=== PATIENT | female | born 2000 | race Caucasian/White ===

== ENCOUNTER 2020-05-23 11:36 | Day surgery (SDC) | payer OTHER, SELFPAY ==
[2020-05-23] VITALS (15 sets, daily range): BP systolic 92–155; BP diastolic 46–68; PULSE 77–102; RESP 12–25; TEMP 36.6–37.9; O2SAT 99–100
--- NOTE | ~2020-05-23 | US_ITS ---
EXAMINATION: US pelvic complete w TV DATE: 05/23/2020 13:21 INDICATION: Recent presenting with fever and vaginal bleeding TECHNIQUE: Multiple transabdominal and endovaginal sonographic images of the pelvis were obtained. COMPARISON: None. FINDINGS: The uterus measures 9.7 x 5.1 x 6.3 cm. The endometrial complex measures 15 mm mm in thickness with mildly heterogeneous echogenicity. The right ovary measures 4.0 x 2.3 x 2.0 cm. The left ovary measur es 2.7 x 1.5 x 1.5 cm. There is normal vascular flow in the ovaries. There is no free fluid in the pe lvis. IMPRESSION: 1. Mildly thickened and mildly heterogeneous endometrial complex measuring 15 mm in thickness which c ould be related to end of the secretory phase, clot or retained products of conception. Reviewed, dictated and finalized at location A. IMPRESSION: 1. Mildly thickened and mildly heterogeneous endometrial complex measuring 15 m m in thickness which could be related to end of the secretory phase, clot or re tained products of conception.
--- NOTE | ~2020-05-23 | XR_ITS ---
EXAMINATION: XR chest 1V portable DATE: 05/23/2020 12:45 INDICATION: Fever TECHNIQUE: frontal view of the chest was obtained. COMPARISON: None FINDINGS: The lungs are clear with no focal airspace opacities, pulmonary edema, pleural effusion or pneumothor ax. The cardiomediastinal silhouette is normal. Visualized bones and soft tissues are unremarkable. IMPRESSION: 1. No acute cardiopulmonary disease. Reviewed, dictated and finalized at location A.
--- NOTE | 2020-05-23 11:47 | ED.FEVER ---
HPI - Fever General Chief Complaint: Fever Stated Complaint: fatigue, h/a, diarrhea Time Seen by Provider: 05/23/20 11:47 Source: patient Mode of arrival: ambulatory Limitations: no limitations History of Present Illness HPI Narrative: Patient is a G1, P0 0010, who presents for evaluation of fever and vaginal bleeding. Patient states she had a positive test last week, was seen at a local [facility] where she was prescribed oral abortive medication, had her first dose on Monday, and took her second dose on Monday 24 hours after. Patient is unsure of the name of the medication she took. Patient states that she had some typical cramping, vaginal bleeding Monday and Monday, stated this had mostly resolved on Monday and patient was actually feeling much improved. This morning however, patient awakened with fever, myalgias and diarrhea. Patient is also reporting very heavy vaginal bleeding with large clots. Patient is reporting pelvic pain. She is denying any dysuria or hematuria. Patient is monogamous with her boyfriend. She denies history of chlamydia or gonorrhea. She denies history of previous pregnancies. She states her blood type is O+. Related Data Allergies Allergy/AdvReac Type Severity Reaction Status Date / Time azithromycin Allergy Severe Anaphylactic Verified 05/23/20 11:51 Shock ciprofloxacin Allergy Unknown Anaphylactic Verified 05/23/20 11:51 Shock clarithromycin AdvReac Unknown Anaphylactic Verified 05/23/20 11:51 Shock Review of Systems Review of Systems: Narrative: CONSTITUTIONAL: Reports fever and chills ENT: Denies rhinorrhea, congestion, sore throat, or otalgia. CARDIOVASCULAR: Denies chest pain, palpitations, or edema. RESPIRATORY: Denies cough or dyspnea. GASTROINTESTINAL: Reports pelvic pain, nausea and diarrhea GENITOURINARY: Denies dysuria or hematuria. Reports vaginal bleeding. SKIN: Denies rash or itching. MUSCULOSKELETAL: Denies back pain, joint pain, reports myalgias NEUROLOGIC: Denies headache, numbness, or weakness. [facility] Past Medical History Medical History Nephrolithiasis UTI (urinary tract infection) Social History Social History Smoking status: Never smoker Alcohol intake: current Alcohol use details: Social Substance use: never Gender identity (if verbalized by the patient): Female Exam Narrative: Exam Narrative: GENERAL: Awake, alert, conversant HEAD: Normocephalic, atraumatic. EYES: PERRLA and EOMI. ENT: Nares clear, no rhinorrhea or epistaxis. Mucous membranes moist. NECK: Supple. CHEST: No respiratory distress, breathing even and non labored HEART: Tachycardic rate, sinus rhythm ABDOMEN:Non distended, non tender : Labia majora and minora normal without lesions. Vagina with blood, approximately 10 amounts of blood present. Mild cervical motion tenderness. Os dilated to 2 cm. No adnexal tenderness or fullness bilaterally. No purulent discharge present. EXTREMITIES: Normal range of motion. No edema. SKIN: Warm, dry, no rash. NEURO:No focal deficits. Alert and oriented x3 Course Vital Signs Vital signs: Vital Signs Temperature 37.9 C H 05/23/20 11:41 Pulse Rate 102 H 05/23/20 11:41 Respiratory Rate 14 05/23/20 11:41 Blood Pressure 155/66 H 05/23/20 11:41 Pulse Oximetry 99 05/23/20 11:41 Temperature 37.4 C 05/23/20 14:19 Pulse Rate 82 05/23/20 15:46 Respiratory Rate 23 H 05/23/20 15:46 Blood Pressure 107/64 05/23/20 15:46 Pulse Oximetry 99 05/23/20 14:19 MDM - Fever MDM Narrative Medical decision making narrative: Patient presented for evaluation of fever, vaginal bleeding in the setting of recent . Patient presents febrile, tachycardic. Blood pressure is stable. Patient is quite tender on pelvic exam, vaginal exam does reveal a slightly dilated office, active blee
[2020-05-23] MEDS: ONDANSETRON INJ 4 MG/2 ML VIAL IV PUSH (12:05)
[2020-05-23 12:10] LABS: Basophils Percent Auto 0.6 % (0.2-1.2); Hematocrit 36.6 % (37.0-47.0); Hemoglobin 12.2 g/dL (12.0-15.0); Immature Granulocyte Absolute 0.01 K/mm3 (0.00-0.031); Immature Granulocyte Percent A 0.2 % (0-0.5); Immature Platelet Fraction Pct 3.5 % (0.9-11.2); Lymphocytes Absolute Auto 0.51 K/mm3 (0.9-3.2); Lymphocytes Percent Auto 10.4 % (18.3-44.2); Mean Corpuscular HGB Conc 33.3 g/dl (32-36); Mean Corpuscular Hemoglobin 28.8 pg (26-34); Mean Corpuscular Volume 86.3 fl (80-100); Mean Platelet Volume 10.8 fl (7.4-10.4); Monocytes Absolute Auto 0.4 K/mm3 (0.1-0.6); Monocytes Percent Auto 7.7 % (2.6-8.5); Neutrophils Percent Auto 81.1 % (45.5-73.1); Platelet Count Result 152 k/mm3 (150-375); Red Blood Count 4.24 M/mm3 (4.2-5.4); Red Cell Distribution Width 12.4 % (11.5-14.5); White Blood Count 4.9 K/mm3 (4.5-10.0)
[2020-05-23 12:14] LABS: Add Urine Microscopic? YES; Appearance Urine Clear (Clear); Bilirubin Urine Negative (Negative); Blood Urine 2+ (Negative); Color Urine Straw (Yellow); Glucose Urine UA Negative (Negative); Ketones Urine Negative (Negative); Leukocyte Esterase Ur Negative LEU/UL (Negative); Mucus Urine Rare /lpf; Nitrate Urine Negative (Negative); Protein Urine Negative (Negative); RBC Urine 21-50 /hpf (0-2); Specific Grav Ur 1.016 (1.001-1.035); Squamous Epithelial Cell Urine Occasional /hpf (Few); Urobilinogen Urine Negative mg/dL (<2.0); WBC Urine 0-3 /hpf
[2020-05-23 12:17] LABS: Lactic Acid Reflex 1.1 mmol/L (0.7-2.1)
[2020-05-23 12:21] LABS: Alanine Aminotransferase 15 U/L (4-35); Albumin Level 3.9 g/dL (3.5-5.1); Alkaline Phosphatase 60 U/L (38-126); Anion Gap 5 mmol/L (8-16); Aspartate Amino Transferase 23 U/L (14-36); Bilirubin,Total 0.4 mg/dL (0.2-1.3); Blood Urea Nitrogen 7 mg/dL (7-17); CRP 2.1 mg/dL (<1.0); Calcium 8.4 mg/dL (8.4-10.2); Carbon Dioxide 26 mmol/L (22-30); Chloride 102 mmol/L (98-107); Estimated CRCL calculation 90 ml/min; Estimated Glomerular Filt Rate > 60; Glucose 106 mg/dL (65-105); Potassium 3.9 mmol/L (3.4-5.0); Sodium 133 mmol/L (137-145)
[2020-05-23 12:30] LABS: Prothrombin Time 13.1 Seconds (11.1-14.7)
[2020-05-23] MEDS: MORPHINE SULFATE 2 MG/ML INJ IV PUSH (14:51)
[2020-05-23] MEDS: SODIUM CHLORIDE 0.9% IV 1,000 ML 150 ML IV CONT (14:52)
[2020-05-23] MEDS: metroNIDAZOLE 500 MG/ISO 100ML 500 MG/100 ML BAG 100 MG IVPB (15:05)
--- NOTE | 2020-05-23 15:30 | PC.NURSE ---
Pt states she has hives on her back and legs. MD notified. VORB 25mg benadryl
[2020-05-23] MEDS: diphenhydrAMINE HCl INJ 50 MG/ML VIAL 25 MG IV PUSH (15:45)
--- NOTE | 2020-05-23 15:55 | WPDANESEPPF ---
Anes - Initial Pre Proc Eval Procedure: Operation Date: 05/23/20 16:00 Proposed Procedures p D&C Suction and Sharp - Caleb Rico MD Date/Time: 05/23/20 15:55 Surgeon: Caleb Rico MD Pre Op Diagnosis: fatigue, h/a, diarrhea Patient Data Age: 20 Gender: F Height: 1.6 m Weight: 58.9 kg Last Vital Signs Temp 37.4 C 05/23/20 14:19 Pulse 82 05/23/20 14:19 Resp 23 H 05/23/20 14:19 BP 102/60 05/23/20 14:19 Pulse Ox 99 05/23/20 14:19 Allergies Allergy/AdvReac Type Severity Reaction Status Date / Time azithromycin Allergy Severe Anaphylactic Verified 05/23/20 11:51 Shock ciprofloxacin Allergy Unknown Anaphylactic Verified 05/23/20 11:51 Shock clarithromycin AdvReac Unknown Anaphylactic Verified 05/23/20 11:51 Shock Home Medications Medication Instructions Recorded Confirmed Type acetaminophen-codeine 1 tablet 05/23/20 History promethazine 05/23/20 History Laboratory Tests 05/23/20 05/23/20 05/23/20 11:58 11:58 11:58 WBC 4.9 K/mm3 K/mm3 (4.5-10.0) RBC 4.24 M/mm3 M/mm3 (4.2-5.4) Hgb 12.2 g/dL g/dL (12.0-15.0) Hct 36.6 % L % (37.0-47.0) MCV 86.3 fl fl (80-100) MCH 28.8 pg pg (26-34) MCHC 33.3 g/dl g/dl (32-36) RDW 12.4 % % (11.5-14.5) Plt Count 152 k/mm3 k/mm3 (150-375) MPV 10.8 fl H fl (7.4-10.4) Immature Gran % (Auto) 0.2 % % (0-0.5) Neut % (Auto) 81.1 % H % (45.5-73.1) Lymph % (Auto) 10.4 % L % (18.3-44.2) [place] % (Auto) 7.7 % % (2.6-8.5) Eos % (Auto) 0.0 % % (0-4.4) Baso % (Auto) 0.6 % % (0.2-1.2) Lymph # (Auto) 0.51 K/mm3 L K/mm3 (0.9-3.2) [place] # (Auto) 0.4 K/mm3 K/mm3 (0.1-0.6) Eos # (Auto) 0.0 K/mm3 K/mm3 (0-0.3) Baso # (Auto) 0.0 K/mm3 K/mm3 (0.0-0.1) Abs Immat Gran (auto) 0.01 K/mm3 K/mm3 (0.00-0.031) Absolute Neuts (auto) 4.0 K/mm3 K/mm3 (1.3-6.7) Absolute Nucleated RBC 0.0 K/mm3 K/mm3 (0.0-0.012) Nucleated RBC % 0.0 % % (0.0-0.2) % Immature Plt Fraction 3.5 % % (0.9-11.2) PT 13.1 Seconds Seconds (11.1-14.7) INR 1.0 APTT 29.0 SECONDS SECONDS (22.3-36.8) Sodium 133 mmol/L L mmol/L (137-145) Potassium 3.9 mmol/L mmol/L (3.4-5.0) Chloride 102 mmol/L mmol/L (98-107) Carbon Dioxide 26 mmol/L mmol/L (22-30) Anion Gap 5 mmol/L L mmol/L (8-16) BUN 7 mg/dL mg/dL (7-17) Creatinine 0.70 mg/dL mg/dL (0.7-1.0) Estim Creat Clear Calc 90 ml/min ml/min Estimated GFR > 60 (59 - ) Glucose 106 mg/dL H mg/dL (65-105) Lactic Acid Calcium 8.4 mg/dL mg/dL (8.4-10.2) Total Bilirubin 0.4 mg/dL mg/dL (0.2-1.3) AST 23 U/L U/L (14-36) ALT 15 U/L U/L (4-35) Alkaline Phosphatase 60 U/L U/L (38-126) C-Reactive Protein 2.1 mg/dL H mg/dL (<1.0) Total Protein 7.0 g/dL g/dL (6.3-8.2) Albumin 3.9 g/dL g/dL (3.5-5.1) Beta HCG, Quant 2789.80 mIU/ML mIU/ML Urine Color Urine Appearance Urine pH Ur Specific [place] Urine Protein Urine Glucose (UA) Urine Ketones Ur Blood (Man) Urine Nitrate Urine Bilirubin Urine Urobilinogen Leukocyte Esterase Rfl Urine RBC Urine WBC Ur Squamous Epith Cells Urine Mucus SARS-CoV-2 RNA (RT-PCR) Blood Type Antibody Screen Screen Baby's Blood Type Baby's PAUL Doses of RhIg Required 05/23/20 05/23/20 05/23/20
--- NOTE | 2020-05-23 16:15 | PM.IMHP ---
H&P: HPI History of Present Illness Date/Time: 05/23/20 16:15 Chief complaint: fatigue, h/a, diarrhea Narrative: Indira Rendon is a 20 year old female 1 female who presents with vaginal bleeding cramping discomfort. Earlier in the week to 2 pills for medical induction of termination of which did not cause a lot of bleeding and cramping until this morning when she did have a significant amount of the above and therefore presents emergency room. Ultrasound reveals retained products of conception and she does continue with pain and discomfort therefore will proceed with suction curettage. Also note has low-grade fever which without any other symptoms will at this point be attributed to of potential for endometritis therefore on discharge with placed on antibiotics as well as having gotten antibiotics already in the emergency room. Review of Systems Review of Systems: All systems reviewed & are unremarkable except as noted in HPI and below PMFSH Past Medical History Medical History Nephrolithiasis UTI (urinary tract infection) Social History Social History Smoking status: Never smoker Alcohol intake: current Alcohol use details: Social Substance use: never Gender identity (if verbalized by the patient): Female Meds Home Medications and Allergies Home Medications Medication Instructions Recorded Confirmed Type acetaminophen-codeine 1 tablet 05/23/20 History promethazine 05/23/20 History Allergies Allergy/AdvReac Type Severity Reaction Status Date / Time azithromycin Allergy Severe Anaphylactic Verified 05/23/20 11:51 Shock ciprofloxacin Allergy Unknown Anaphylactic Verified 05/23/20 11:51 Shock clarithromycin AdvReac Unknown Anaphylactic Verified 05/23/20 11:51 Shock Vital Signs Vital Signs - 24 hr 05/23/20 11:41 05/23/20 12:15 05/23/20 12:17 Temperature 37.9 C H Pulse Rate 102 H 98 95 Respiratory Rate 14 16 21 H Blood Pressure 155/66 H 118/68 115/67 Pulse Oximetry 99 05/23/20 12:46 05/23/20 14:19 05/23/20 14:23 Temperature 37.4 C Pulse Rate 92 82 85 Respiratory Rate 18 23 H 25 H Blood Pressure 108/63 102/60 102/60 Pulse Oximetry 99 05/23/20 14:30 05/23/20 15:00 05/23/20 15:46 Temperature Pulse Rate 90 86 82 Respiratory Rate 18 18 23 H Blood Pressure 111/61 100/66 107/64 Pulse Oximetry Exam Const: General: no acute distress Resp: Auscultation: clear to auscultation bilaterally Cardio: Rate: regular rate Rhythm: regular rhythm GI: GI Palp: Yes Soft to palpation : Other: Vaginal bleeding noted cervix closed. H&P: Results Labs Labs: Short CBC 05/23/20 Range/Units 11:58 WBC 4.9 (4.5-10.0) K/mm3 Hgb 12.2 (12.0-15.0) g/dL Hct 36.6 L (37.0-47.0) % Plt Count 152 (150-375) k/mm3 BMP 05/23/20 11:58 Sodium 133 L Potassium 3.9 Chloride 102 Carbon Dioxide 26 BUN 7 Creatinine 0.70 Glucose 106 H Calcium 8.4 Liver Function 05/23/20 Range/Units 11:58 Total Bilirubin 0.4 (0.2-1.3) mg/dL AST 23 (14-36) U/L ALT 15 (4-35) U/L Alkaline Phosphatase 60 (38-126) U/L Albumin 3.9 (3.5-5.1) g/dL Urine 05/23/20 Range/Units 11:58 Urine Color Straw (Yellow) Urine Appearance Clear (Clear) Urine pH 8.0 (5.0-9.0) Ur Specific [place] 1.016 (1.001-1.035) Urine Protein Negative (Negative) mg/dL Urine Glucose (UA) Negative (Negative) mg/dL Assessment and Plan Assessment and plan (1) Incomplete miscarriage: Code(s): O03.4 - Incomplete spontaneous without complication Status: Acute Additional Plan proceed with suction curettage.
--- NOTE | 2020-05-23 16:35 | PM.OP ---
Procedure Note - Brief Procedure Note - Brief Date of procedure: 05/23/20 Pre-op diagnosis: fatigue, h/a, diarrhea Incomplete miscarriage Post-op diagnosis: same Procedure performed: suction curettage Description of procedure: patient prepped draped in usual manner for this procedure uterus was sounded to 8cm. 8Mm curette was placed and under suction minimal tissue was removed. Sharp curette throughout with no significant bleeding. Second probe was placed 1 more time no significant bleeding. The procedure at this point was considered terminated there was no significant blee Surgeon: Caleb Rico MD Estimated blood loss (mL): 20 Drains: No Packing: No Pathology: yes Complications: No immediate complications Condition: stable Disposition: PACU Findings: minimal amount of retained products of conception.
[2020-05-23] MEDS: LACTATED RINGERS 1,000 ML 30 ML IV CONT (16:46)
[2020-05-23 23:55] LABS: SARS-CoV-2 RNA PCR Negative
--- NOTE | 2020-05-28 10:40 | PM.OP ---
Procedure Note - Brief Procedure Note - Brief Date of procedure: 05/28/20 Pre-op diagnosis: fatigue, h/a, diarrhea Anesthesia: MAC Surgeon: Caleb Rico MD
== END 2020-05-23 18:15 | disposition home or self-care (01) ==
LOC: ANHED 14:33 → ANHSURGERY 15:13
PROVIDERS: Emergency Provider Emergency Medicine; Visit Provider Obstetrics & Gynecology
PROC: (CPT 59812; principal; 2020-05-23 16:00)
DX: O07.4 Failed attempted termination of pregnancy without complication (principal); Z20.828 Contact with and (suspected) exposure to other viral communicable diseases
CPT/HCPCS: 59812; 36415; 71045; 76830; 76856; 80053; 81001; 83605; 84702; 85025; 85055; 85461; 85610; 85730; 86140; 87040; 87635; 88305; 96361; 96374; 96375; 99285; A9270; C9803; J0131; J1200; J2210; J2250; J2270; J2405; J2543; J2590; J2704; J3010; J7030; J7120; U0003

== ENCOUNTER 2021-02-10 02:29 | Emergency (ER) | payer OTHER, SELFPAY ==
--- NOTE | ~2021-02-10 | CT_ITS ---
EXAMINATION: CT abdomen pelvis wo con DATE: 02/10/2021 03:14 INDICATION: Left flank pain. TECHNIQUE: Computed tomography (CT) of the abdomen and pelvis was performed without intravenous contr ast. Automated exposure control and iterative reconstruction technique were employed. The dose-length product was 281.76 mGy-cm. COMPARISON: CT abdomen and pelvis 12/21/2018 FINDINGS: The visualized portions of the lung bases demonstrate minimal atelectasis. There are 6 mm a nd 3 mm nodules in right lower lobe, likely benign. No pleural effusion. The heart size is normal. No pericardial effusion. The liver, gallbladder, spleen, pancreas, adrenal glands, and kidneys are norm al. There is no urolithiasis. There are no dilated loops of bowel. The appendix is normal. There are no pathologically enlarged lymph nodes. There is trace ascites. 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 IMPRESSION: 1. No urolithiasis. Reviewed, dictated and finalized at location A. IMPRESSION: 1. No urolithiasis.
[2021-02-10 02:32] VITALS: BP 109/67; PULSE 97; RESP 16; TEMP 36.9; O2SAT 99
--- NOTE | 2021-02-10 02:39 | ED.FEMALEGU ---
HPI - Female Genitourinary General Chief complaint: Back Pain/Injury Stated complaint: left flank pain Time Seen by Provider: 02/10/21 02:35 Source: patient Mode of arrival: ambulatory Limitations: no limitations History of Present Illness HPI Narrative: Patient is a 18-year-old female complaining of left flank pain, 6 out of 10, sharp accompanied by dysuria and nausea that started 1 week ago. Patient denies any chest pain, shortness of breath, abdominal pain, vomiting, diarrhea, fever or chills. Related Data Allergies Allergy/AdvReac Type Severity Reaction Status Date / Time azithromycin Allergy Severe Anaphylactic Verified 05/23/20 11:51 Shock ciprofloxacin Allergy Unknown Anaphylactic Verified 05/23/20 11:51 Shock clarithromycin AdvReac Unknown Anaphylactic Verified 05/23/20 11:51 Shock Review of Systems Review of Systems: All systems reviewed & are unremarkable except as noted in HPI and below Constitutional: Constitutional: Denies body ache(s), Denies excessive sweating, Denies fatigue, Denies fever(s), Denies headache(s), Denies lethargy, Denies malaise, Denies weakness and Denies weight loss Eyes: Eyes: Denies blurry vision, Denies change in vision and Denies loss of vision ENT: Denies dizziness, Denies ear discharge, Denies headache(s), Denies lip swelling, Denies epistaxis, Denies nasal congestion, Denies neck pain, Denies throat swelling and Denies tongue swelling Cardiovascular: Cardiovascular: Denies chest pain, Denies chest pain at rest, Denies chest pain with activity, Denies diaphoresis, Denies rapid heart rate, Denies edema, Denies irregular heart rhythm, Denies lightheadedness, Denies palpitations, Denies dyspnea and Denies dyspnea on exertion Respiratory: Respiratory: Denies chest congestion, Denies cough, Denies hemoptysis, Denies dyspnea and Denies dyspnea on exertion Gastrointestinal: Gastrointestinal: Denies abdominal pain, Denies melena, Denies hematochezia, Denies diarrhea, Denies vomiting and Denies hematemesis Musculoskeletal: Musculoskeletal: Denies abnormal gait, Denies deformity, Denies joint swelling, Denies limited range of motion, Denies neck pain and Denies numbness Neurologic: Denies Abnormal speech present, Denies abnormal gait, Denies confusion, Denies dizziness, Denies headache(s), Denies focal weakness, Denies loss of vision, Denies numbness, Denies Other visual disturbances, Denies Sensory deficit (Neuro) and Denies weakness Psychiatric: Psychiatric: Denies confusion, Denies depression, Denies auditory hallucinations, Denies homicidal ideation and Denies suicidal ideation Endocrine: Endocrine: Denies cold intolerance, Denies excessive sweating, Denies fatigue, Denies heat intolerance and Denies palpitations Hematologic/Lymphatic: Hematologic/Lymphatic: Denies easy bleeding and Denies easy bruising Allergic/Immunologic: Allergic/Immunologic: Denies lip swelling, Denies throat swelling and Denies tongue swelling PMFSH Past Medical History Medical History (Updated 02/10/21 @ 04:38 by Carlos Yuan MD) Nephrolithiasis UTI (urinary tract infection) Social History Social History Smoking status: Never smoker Alcohol intake: current Substance use: never Gender identity (if verbalized by the patient): Female Exam Const: General: cooperative, healthy appearing, comfortable, no acute distress, well developed, alert and awake; No confusion Orientation/consciousness: oriented to person, oriented to place, oriented to time, patient oriented x3 and No confusion Limitations: no limitations HENMT: Head: normal to inspection, normocephalic and atraumatic Ears: hearing grossly normal bilaterally, TM normal on the right and TM normal on the left General nose exam: Normal external nose present, Normal nares present and No nasal discharge present Face and sinus: normal facial exam Mouth: Yes Normal oral and palatal
--- NOTE | 2021-02-10 02:43 | PC.NURSE ---
Pt ambulated in fraga to restroom to provide urine specimen. Pt now back in room resting on cart in its lowest position with call button and personal items within reach. Boyfriend present at bedside.
--- NOTE | 2021-02-10 02:44 | PC.NURSE ---
Pt presents to ED with complaint of left flank pain that onset approx 1.5 weeks ago. Pt admits to hx of kidney stones, kidney infection and ureter stent placement. Pt states she had to have stone surgically removed. Pt admits to nausea and denies emesis, diarrhea, fever, chills, chest pain, sob and tx pain manager presentation. Pt rates pain 7/10 and aching at this time. Pt resting on cart in its lowest position with call button and personal items within reach. Pt alert, stable and in no obvious distress. Friend at bedside. Call button and personal items within reach; pt advised to press call button for assistance.
--- NOTE | 2021-02-10 02:54 | PC.NURSE ---
EDMD presented to bedside. Urine specimen collect and blood work collected and sent to lab.
[2021-02-10 03:04] VITALS: BP 92/66; PULSE 93; RESP 13; TEMP 37.4; O2SAT 98
[2021-02-10 03:04] LABS: Basophils Absolute Auto 0.1 K/mm3 (0.0-0.1); Basophils Percent Auto 0.4 % (0.2-1.2); Eosinophils Absolute Auto 0.3 K/mm3 (0-0.3); Eosinophils Percent Auto 1.9 % (0-4.4); Hematocrit 36.9 % (37.0-47.0); Hemoglobin 12.6 g/dL (12.0-15.0); Immature Granulocyte Absolute 0.05 K/mm3 (0.00-0.031); Immature Granulocyte Percent A 0.3 % (0-0.5); Lymphocytes Absolute Auto 1.82 K/mm3 (0.9-3.2); Lymphocytes Percent Auto 12.6 % (18.3-44.2); Mean Corpuscular HGB Conc 34.1 g/dl (32-36); Mean Corpuscular Hemoglobin 29.4 pg (26-34); Mean Corpuscular Volume 86.2 fl (80-100); Mean Platelet Volume 10.6 fl (7.4-10.4); Monocytes Percent Auto 6.8 % (2.6-8.5); Neutrophils Absolute Auto 11.2 K/mm3 (1.3-6.7); Platelet Count Result 207 k/mm3 (150-375); Red Blood Count 4.28 M/mm3 (4.2-5.4); Red Cell Distribution Width 12.3 % (11.5-14.5); White Blood Count 14.4 K/mm3 (4.5-10.0)
[2021-02-10 03:07] LABS: Add Urine Microscopic? NO; Appearance Urine Clear (Clear); Bilirubin Urine Negative (Negative); Blood Urine Negative (Negative); Color Urine Straw (Yellow); Glucose Urine UA Negative (Negative); Ketones Urine Negative (Negative); Leukocyte Esterase Ur Negative LEU/UL (Negative); Nitrate Urine Negative (Negative); Protein Urine Negative (Negative); Specific Grav Ur 1.011 (1.001-1.035); Urobilinogen Urine Negative mg/dL (<2.0)
[2021-02-10] MEDS: KETOROLAC 30 MG/ML VIAL (*BKC) IV PUSH (03:21)
[2021-02-10] MEDS: SODIUM CHLORIDE 0.9% IV 1,000 ML 999 ML IV CONT (03:22)
--- NOTE | 2021-02-10 03:27 | PC.NURSE ---
Pt to and from Ct and is now back in room resting on cart in its lowest position with call button and personal items within reach. Friend remains at bedside. Call button and personal items within reach. Vitals are stable and pt in no obvious distress. Advised to press call button for assistance.
[2021-02-10 03:31] LABS: Anion Gap 7 mmol/L (8-16); Blood Urea Nitrogen 15 mg/dL (7-17); Calcium 9.3 mg/dL (8.4-10.2); Carbon Dioxide 24 mmol/L (22-30); Chloride 106 mmol/L (98-107); Estimated Glomerular Filt Rate > 60; Glucose 94 mg/dL (65-105); Potassium 3.8 mmol/L (3.4-5.0); Sodium 137 mmol/L (137-145)
--- NOTE | 2021-02-10 03:47 | PC.NURSE ---
Pt complains of persistent pain. EDMD notified and states he will place orders.
[2021-02-10] MEDS: HYDROcodone/acetaminophen (*CRX) 5-325 MG TABLET 1 TAB PO (03:59)
[2021-02-10 04:46] VITALS: BP 95/62; PULSE 79; RESP 18; TEMP 37; O2SAT 99
--- NOTE | 2021-02-10 04:46 | PC.NURSE ---
EDMD presented to bedside to update pt on poc. All questions and concerns addressed.
[2021-02-10 04:48] VITALS: BP 95/62; PULSE 79; RESP 18; TEMP 37; O2SAT 99
== END 2021-02-10 04:49 | disposition home or self-care (01) ==
PROVIDERS: Emergency Provider Emergency Medicine
DX: R10.9 Unspecified abdominal pain (principal); Z87.440 Personal history of urinary (tract) infections
CPT/HCPCS: 36415; 74176; 80048; 81003; 81025; 85025; 96361; 96374; 99284; A9270; J1885; J7030

== ENCOUNTER 2021-04-26 17:54 | Emergency (ER) | payer OTHER, SELFPAY ==
--- NOTE | ~2021-04-26 | XR_ITS ---
EXAMINATION: XR knee RT min 4V DATE: 04/26/2021 18:14 INDICATION: Right knee pain. TECHNIQUE: 4 views of right knee on 5 radiographs were obtained. COMPARISON: None. FINDINGS: Bone alignment is normal. No fracture. Joint spaces are well maintained. There is no knee j oint effusion. IMPRESSION: 1. No fracture. Reviewed, dictated and finalized at location A. IMPRESSION: 1. No fracture.
[2021-04-26 17:57] VITALS: BP 116/72; PULSE 82; RESP 14; TEMP 36.7; O2SAT 99
--- NOTE | 2021-04-26 18:49 | ED.LOWEXIN ---
HPI - Extremity Injury (Lower) General Chief Complaint: Extremity Injury, Lower Stated Complaint: r knee pain Time Seen by Provider: 04/26/21 18:20 Source: patient Mode of arrival: ambulatory Limitations: no limitations History of Present Illness HPI Narrative: Patient is a 20-year-old female who presents complaining of right knee pain. She reports twisting the knee approximately 2 to 3 days ago. She reports rest, ice and use of ibuprofen with moderate relief. Patient reports increased pain with ambulation. She denies all other injuries she denies of complaints. 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 Related Data Allergies Allergy/AdvReac Type Severity Reaction Status Date / Time azithromycin Allergy Severe Anaphylactic Verified 04/26/21 18:31 Shock ciprofloxacin Allergy Unknown Anaphylactic Verified 04/26/21 18:31 Shock clarithromycin AdvReac Unknown Anaphylactic Verified 04/26/21 18:31 Shock Review of Systems Review of Systems: CONSTITUTIONAL: Denies fever, chills, or sweats. EYES: Denies visual changes, redness, or discharge. ENT: Denies rhinorrhea, congestion, sore throat, or otalgia. CARDIOVASCULAR: Denies chest pain, palpitations, or edema. RESPIRATORY: Denies cough or dyspnea. GASTROINTESTINAL: Denies abdominal pain, nausea, vomiting, or diarrhea. GENITOURINARY: Denies dysuria or hematuria. SKIN: Denies rash or itching. MUSCULOSKELETAL: Reports right knee pain NEUROLOGIC: Denies headache, numbness, dizziness, or weakness. PSYCHIATRIC: Denies anxiety or depression. [facility] Past Medical History Medical History (Updated 04/26/21 @ 18:56 by GUERLINE Ovalle) Nephrolithiasis UTI (urinary tract infection) Social History Social History Smoking status: Never smoker Alcohol intake: current Alcohol use details: Social Substance use: never Gender identity (if verbalized by the patient): Female Comments At the time of signature, I have reviewed and agree with nursing past medical, surgical, social, and family history unless otherwise noted. Please see nursing chart for further information. There is no relevant family history pertinent to the presenting complaint. Exam Narrative: GENERAL: Well-appearing, well-nourished, and in no acute distress. HEAD: Normocephalic, atraumatic. EYES: EOMI. No redness or drainage. Conjunctiva are normal. ENT: Mucous membranes pink and moist. CHEST: No respiratory distress. HEART: Regular rate and rhythm. EXTREMITIES: Normal range of motion. Mild edema to right knee, tenderness with palpation to lateral right knee, no deformity noted, distal sensation intact, good capillary refill SKIN: Warm, dry, no rash. NEURO: No focal deficits. Alert and oriented x3. Gait steady. PSYCH: Normal affect. No signs of depression or anxiety. Course Vital Signs Vital signs: Vital Signs Temperature 36.7 C 04/26/21 17:57 Pulse Rate 882 H 04/26/21 17:57 Respiratory Rate 14 04/26/21 17:57 Blood Pressure 116/72 04/26/21 17:57 Pulse Oximetry 99 04/26/21 17:57 Temperature 36.7 C 04/26/21 17:57 Pulse Rate 882 H 04/26/21 17:57 Respiratory Rate 14 04/26/21 17:57 Blood Pressure 116/72 04/26/21 17:57 Pulse Oximetry 99 04/26/21 17:57 Reviewed MDM - Extremity Injury (Lower) MDM Narrative Medical decision making narrative: Patient's x-ray shows no acute osseous abnormality. Mild edema noted right knee, tenderness patient to the right lateral knee. Discussed with patient that most likely a soft tissue injury and follow-up with orthopedics is necessary for further evaluation. Patient agrees with plan of care. Patient is stable for discharge home with outpatient follow-up as discussed. Differential Diagnosis Differential diagnosis: Likely other (Sprain, strain, fracture, contusion) Medical Records Attestation: I reviewed the patient's medical records.
== END 2021-04-26 19:10 | disposition home or self-care (01) ==
LOC: ANHED 19:03
PROVIDERS: Emergency Provider Nurse Practitioner
DX: M25.561 Pain in right knee (principal); Z87.440 Personal history of urinary (tract) infections; Z87.442 Personal history of urinary calculi
CPT/HCPCS: 73564; 99283

== ENCOUNTER 2021-07-14 16:46 | Emergency (ER) | payer OTHER, SELFPAY ==
--- NOTE | 2021-07-14 17:15 | PC.NURSE ---
pt left - states she will go somewhere else. Left the ER with steady gait in no distress
== END 2021-07-14 17:15 | disposition left against medical advice (07) ==
DX: Z53.21 Procedure and treatment not carried out due to patient leaving prior to being seen by health care provider (principal)
CPT/HCPCS: 99199

== ENCOUNTER 2021-09-12 07:26 | Observation (INO) | payer OTHER, SELFPAY ==
[2021-09-12] VITALS (7 sets, daily range): BP systolic 95–124; BP diastolic 44–86; PULSE 84–98; RESP 15–20; TEMP 36.6–36.8; O2SAT 98–100; BMI 23.8
--- NOTE | ~2021-09-12 | CT_ITS ---
EXAMINATION: CT abdomen pelvis w con DATE: 09/12/2021 08:32 INDICATION: Right flank pain. Nausea and vomiting. TECHNIQUE: Computed tomography (CT) of the abdomen and pelvis was performed with 100 mL Omnipaque 350 intravenous contrast. Automated exposure control and iterative reconstruction technique were employe d. The dose-length product was 295.42 mGy-cm. COMPARISON: CT abdomen and pelvis 02/10/2021 FINDINGS: The visualized portions of the lung bases are clear without pneumonia or pleural effusion. The heart size is normal. No pericardial effusion. The liver, gallbladder, spleen, pancreas, adrenal glands, and kidneys are normal. There are no dilated loops of bowel. The appendix is normal. There ar e no pathologically enlarged lymph nodes. There is physiologic fluid in the pelvis. The bones are unr emarkable. IMPRESSION: 1. No etiology for the patient's symptoms. Reviewed, dictated and finalized at location A. TABLE MECHANIC
--- NOTE | ~2021-09-12 | CT_ITS ---
EXAMINATION: CT brain wo con DATE: 09/12/2021 12:34 INDICATION: Frontal headache. TECHNIQUE: Computed tomography (CT) of the head was performed without intravenous contrast. The mA wa s adjusted according to patient size. Iterative reconstruction technique was employed. The dose-lengt h product was 529.67 mGy-cm. COMPARISON: Head CT 12/23/2018 FINDINGS: There is no intracranial hemorrhage, acute infarction, or abnormal intracranial mass lesion . The ventricles are normal in size. There is mucosal thickening in the paranasal sinuses. The mastoi d air cells are normal. The orbits are normal. IMPRESSION: 1. Normal brain. Reviewed, dictated and finalized at location A. IGERATION SUPERVISOR IMPRESSION: 1. Normal brain.
[2021-09-12 08:09] LABS: Basophils Percent Auto 0.4 % (0.2-1.2); Eosinophils Absolute Auto 0.1 K/mm3 (0-0.3); Eosinophils Percent Auto 2.8 % (0-4.4); Hematocrit 36.8 % (37.0-47.0); Hemoglobin 12.4 g/dL (12.0-15.0); Immature Granulocyte Absolute 0.01 K/mm3 (0.00-0.031); Immature Granulocyte Percent A 0.2 % (0-0.5); Immature Platelet Fraction Pct 5.4 % (0.9-11.2); Lymphocytes Absolute Auto 0.25 K/mm3 (0.9-3.2); Lymphocytes Percent Auto 5.4 % (18.3-44.2); Mean Corpuscular HGB Conc 33.7 g/dl (32-36); Mean Corpuscular Hemoglobin 29.7 pg (26-34); Mean Corpuscular Volume 88.2 fl (80-100); Mean Platelet Volume 10.8 fl (7.4-10.4); Monocytes Absolute Auto 0.4 K/mm3 (0.1-0.6); Monocytes Percent Auto 8.8 % (2.6-8.5); Neutrophils Absolute Auto 3.8 K/mm3 (1.3-6.7); Neutrophils Percent Auto 82.4 % (45.5-73.1); Platelet Count Result 138 k/mm3 (150-375); Red Blood Count 4.17 M/mm3 (4.2-5.4); Red Cell Distribution Width 12.3 % (11.5-14.5); White Blood Count 4.6 K/mm3 (4.5-10.0)
[2021-09-12] MEDS: KETOROLAC 30 MG/ML VIAL (*BKC) IV PUSH (08:10)
[2021-09-12] MEDS: ONDANSETRON INJ 4 MG/2 ML VIAL IV PUSH ×2 (08:10→12:22)
[2021-09-12 08:11] LABS: Alanine Aminotransferase 14 U/L (4-35); Albumin Level 4.1 g/dL (3.5-5.1); Alkaline Phosphatase 65 U/L (38-126); Anion Gap 8 mmol/L (8-16); Aspartate Amino Transferase 23 U/L (14-36); Bilirubin,Total 0.6 mg/dL (0.2-1.3); Blood Urea Nitrogen 16 mg/dL (7-17); Calcium 8.8 mg/dL (8.4-10.2); Carbon Dioxide 23 mmol/L (22-30); Chloride 103 mmol/L (98-107); Estimated CRCL calculation 71 ml/min; Estimated Glomerular Filt Rate > 60; Glucose 99 mg/dL (65-110); Sodium 134 mmol/L (137-145)
[2021-09-12] MEDS: SODIUM CHLORIDE 0.9% IV 1,000 ML 999 ML IV CONT (08:11)
[2021-09-12 08:14] LABS: Add Urine Microscopic? YES; Appearance Urine Cloudy (Clear); Bacteria Urine Trace /hpf; Bilirubin Urine Negative (Negative); Blood Urine 2+ (Negative); Color Urine Yellow (Yellow); Glucose Urine UA Negative (Negative); Ketones Urine Trace mg/dL (Negative); Leukocyte Esterase Ur 2+ LEU/UL (Negative); Mucus Urine Few /lpf; Nitrate Urine Negative (Negative); Protein Urine Negative (Negative); RBC Urine 51-75 /hpf (0-2); Specific Grav Ur 1.027 (1.001-1.035); Squamous Epithelial Cell Urine Many /hpf (Few); Urobilinogen Urine Negative mg/dL (<2.0); WBC Urine >75 /hpf
[2021-09-12 09:10] LABS: Lipase 19 U/L (23-300)
[2021-09-12] MEDS: HYDROmorphone HCL INJ (*CRX) 1 MG/ML SYR 0.5 MG IV PUSH ×3 (09:12→20:23)
--- NOTE | 2021-09-12 10:19 | ED.GENADULT ---
HPI - General Adult General Chief complaint: Urogenital-Female Stated complaint: headache, uti symptoms Time Seen by Provider: 09/12/21 07:34 Source: patient and family Mode of arrival: ambulatory Limitations: no limitations History of Present Illness HPI narrative: Patient presents with right flank pain associated with nausea, chills, burning urination started last night. Constant, no aggravating or relieving factors. History of kidney stones Related Data Home Medications Medication Instructions Recorded Confirmed No Home Medications 09/12/21 09/12/21 Allergies Allergy/AdvReac Type Severity Reaction Status Date / Time azithromycin Allergy Severe Anaphylactic Verified 09/12/21 07:57 Shock ciprofloxacin Allergy Unknown Anaphylactic Verified 09/12/21 07:57 Shock clarithromycin Allergy Unknown Anaphylactic Verified 09/12/21 07:57 Shock Review of Systems Review of Systems: CONSTITUTIONAL: Denies fever, chills, or sweats. EYES: Denies visual changes, redness, or discharge. ENT: Denies rhinorrhea, congestion, sore throat, or otalgia. CARDIOVASCULAR: Denies chest pain, palpitations, or edema. RESPIRATORY: Denies cough or dyspnea. GASTROINTESTINAL: Denies abdominal pain, nausea, vomiting, or diarrhea. GENITOURINARY: Denies dysuria or hematuria. SKIN: Denies rash or itching. MUSCULOSKELETAL: Denies back pain, joint pain, or myalgia. NEUROLOGIC: Denies headache, numbness, or weakness. PSYCHIATRIC: Denies anxiety or depression. PMFSH Past Medical History Medical History Iliotibial band syndrome affecting right lower leg Nephrolithiasis UTI (urinary tract infection) Family History Family History Other Arthritis Asthma Breast cancer Depression Diabetes mellitus Neuropathy Throat cancer Social History Social History Smoking status: Never smoker Alcohol intake: current Alcohol use details: Social Substance use: current Substance use type: marijuana Gender identity (if verbalized by the patient): Female Exam Narrative: General appearance: Well-developed, well-nourished, in pain Skin: Normal color Head: Normocephalic, nontraumatic Eyes: Clear conjunctiva ENT: Oropharynx normal, ears normal, nose normal Neck: Supple, nontender Chest and respiratory: Airway patent, no respiratory distress, no accessory muscle use Heart: Regular rate/rhythm Abdomen: Right flank tenderness Vascular: Normal peripheral pulses, normal capillary refill. Musculoskeletal: Normal range of motion, nontender back Neurologic: Alert and oriented ?3, Course Course Emergency Course: Stable Vital Signs Vital signs: Vital Signs Temperature 36.8 C 09/12/21 07:35 Pulse Rate 97 09/12/21 07:35 Respiratory Rate 20 09/12/21 07:35 Blood Pressure 114/60 09/12/21 07:35 Pulse Oximetry 99 09/12/21 07:35 Temperature 36.8 C 09/12/21 07:35 Pulse Rate 84 09/12/21 12:10 Respiratory Rate 15 09/12/21 12:10 Blood Pressure 124/86 09/12/21 12:10 Pulse Oximetry 98 09/12/21 12:10 Medical Decision Making MDM Narrative Medical decision making narrative: Impressions Abdomen/Pelvis CT 09/12/21 08:34 IMPRESSION: 1. No etiology for the patient's symptoms. Differential Diagnosis Differential Diagnosis: Kidney stone, , urinary tract infection Vital Signs Vital Signs: Vital Signs Temperature 36.8 C 09/12/21 07:35 Pulse Rate 97 09/12/21 07:35 Respiratory Rate 20 09/12/21 07:35 Blood Pressure 114/60 09/12/21 07:35 Pulse Oxime
[2021-09-12] MEDS: MORPHINE SULFATE (*CRX) 4 MG/ML INJ IV PUSH (12:22)
[2021-09-12] MEDS: guaiFENesin 600 MG/DEXTROMETHORPHAN 30 MG SR TAB 12 HR 1 TAB PO (14:43)
--- NOTE | 2021-09-12 15:14 | PM.IMHP ---
H&P: HPI History of Present Illness Date/Time: 09/12/21 15:14 this is a 21-year-old female patient who came to the emergency room with complaints of right flank pain and she also had a headache nausea vomiting fever chills burning with urination that started last night. Patient stated that she has had a history of kidney stones with extraction in the past. Patient stated that she has some nasal congestion as well. She stated she has been vaccinated for COVID-19. Head CT was read as a normal brain. There is mucosal thickening in the paranasal sinuses. I did start her on Flonase and Mucinex. Abdominal CT was read as no etiology for patient's symptoms. Patient was given IV fluids, Toradol, Zofran, Dilaudid, Tylenol morphine, and started on Rocephin for urinary tract infection. The patient stated that her headache is pretty much subsided now. She is no longer nauseated. Sodium 134. Urinalysis leukocyte esterase 2+, rbc's 51-75, wbc's greater than 75, and many squamous cell. Could possibly be a contaminant however cultures were sent off. The patient is being admitted to observation status on the date of service of 09/12/2021. Chief Complaint: Headache and urinary symptoms Review of Systems Review of Systems: All systems reviewed & are unremarkable except as noted in HPI and below Constitutional: Constitutional: Reports as per HPI and Reports no additional constitutional complaints Eyes: Eyes: Reports as per HPI and Reports no additional eye complaints ENT: Reports system reviewed and no additional complaints, except as documented and Reports Normal hearing present Cardiovascular: Cardiovascular: Reports no additional cardiovascular complaints Respiratory: Respiratory: Reports no additional respiratory complaints and Reports no additional respiratory complaints Gastrointestinal: Gastrointestinal: Reports as per HPI and Reports no additional gastrointestinal complaints Musculoskeletal: Musculoskeletal: Reports no additional musculoskeletal complaints Integumentary/Breasts: Skin/Breast: Reports system reviewed and no additional complaints, except as docu and Reports as per HPI Neurologic: Reports system reviewed and no additional complaints, except as documented, Reports as per HPI and Reports Normal hearing present Psychiatric: Psychiatric: Reports no additional psychiatric complaints and Reports as per HPI Endocrine: Endocrine: Reports no additional endocrine complaints Hematologic/Lymphatic: Hematologic/Lymphatic: Reports no additional hematologic/lymphatic complaints Allergic/Immunologic: Allergic/Immunologic: Reports no additional allergic/immunologic complaints [facility] Past Medical History Medical History (Updated 09/12/21 @ 15:29 by Rubina Graham NP) Iliotibial band syndrome affecting right lower leg Nephrolithiasis UTI (urinary tract infection) Surgical History Surgical History (Updated 09/12/21 @ 15:24 by Rubina Graham NP) H/O dilation and curettage History of extraction of renal calculus Family History Family History (Updated 09/12/21 @ 15:25 by Rubina Graham NP) Mother COPD (chronic obstructive pulmonary disease) Other Arthritis Asthma Breast cancer Depression Diabetes mellitus Neuropathy Throat cancer Social History Social History (Updated 09/12/21 @ 15:26 by Rubina Graham NP) Social History: The patient is not and does not have any children. She works at [email or web address] and [email or web address]. 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 Lifelong nonsmoker. She occasionally drinks a glass a wine. No marijuana or illicit drugs. She does not have a durable power managing attorney. Code status full code Smoking status: Never smoker Alcohol intake: current Alcohol use details: Social Substance use: current Substance use type: marijuana Gender identity (if verbalized by the patient): Female Meds Home Medications and Allergies Home Medications Medicatio
[2021-09-12] MEDS: SODIUM CHLORIDE 0.9% IV 1,000 ML 125 ML IV CONT ×2 (16:25→23:07)
--- NOTE | 2021-09-12 21:22 | ADMGEN ---
This patient, Indira Rendon, was admitted to [facility] Surg Room 316-02. Patient/family oriented to hospital policies and general routines including ID bracelet, bed and alarms, visiting hours, pain management, procedures, bathroom and other care routines, personal items, smoking policy, room service/diet, and visiting hours. Information on how to activate the Rapid Response Team has been discussed. Patient/Family are encouraged to report perceived risks to care and to ask questions if they do not understand what they are told or what they should do.
[2021-09-13] VITALS: BP 122/66; PULSE 89; RESP 18; TEMP 36.7; O2SAT 99
[2021-09-13] MEDS: SODIUM CHLORIDE 0.9% IV 1,000 ML 125 ML IV CONT ×2 (05:34→15:17)
[2021-09-13 06:00] VITALS: BP 89/47; PULSE 76; RESP 16; TEMP 36.3; O2SAT 99
[2021-09-13] MEDS: FLUTICASONE PROPIONATE 0.05% NA SPR 16 GM BTL (*BKC) 2 SPRAY NASAL (08:13)
[2021-09-13] MEDS: guaiFENesin 600 MG/DEXTROMETHORPHAN 30 MG SR TAB 12 HR 1 TAB PO ×2 (08:14→20:39)
[2021-09-13] MEDS: HYDROmorphone HCL INJ (*CRX) 1 MG/ML SYR 0.5 MG IV PUSH ×3 (12:25→20:43)
[2021-09-13 14:00] VITALS: BP 91/52; PULSE 75; RESP 16; TEMP 36.6; O2SAT 100
--- NOTE | 2021-09-13 16:25 | PM.IMPN ---
Progress Note: A&P Assessment and Plan (1) Urinary tract infection: Qualifiers: Hematuria presence: with hematuria Urinary tract infection type: site unspecified Qualified Code(s): N39.0 - Urinary tract infection, site not specified; R31.9 - Hematuria, unspecified Code(s): N39.0 - Urinary tract infection, site not specified Status: Acute Assessment and Plan: Patient was started on Rocephin. Blood and urine cultures are pending. Continue with IV fluids. Awaiting UC report (2) Headache: Code(s): R51.9 - Headache, unspecified Status: Acute Assessment and Plan: Continue with nausea and pain medication and IV fluids. Subjective Date/time seen: 09/13/21 16:25 Interval history: 21-year-old female patient who came to the emergency room with complaints of right flank pain and she also had a headache nausea vomiting fever chills burning with urination that started last night. Patient stated that she has had a history of kidney stones with extraction in the past. Pt here with UTI awaiting UC report. Review of Systems Review of Systems: All systems reviewed & are unremarkable except as noted in HPI and below Exam Const: General: cooperative and healthy appearing; No in distress Nutritional Appearance: thin Orientation/consciousness: oriented to person HENMT: Head: normal to inspection Resp: Effort & Inspection: no respiratory distress Auscultation: no rhonchi and no wheezes Cardio: Rate: regular rate Rhythm: regular rhythm GI: Inspection: normal to inspection GI Palp: No abdominal tenderness, No Guarding due to palpation present (GI) and No Hepatomegaly present Auscultation: normal bowel sounds Neuro: General: oriented to person Objective Data Vital Signs Vital Signs: Vital Signs - 24 hr 09/12/21 16:29 09/12/21 18:10 09/12/21 20:30 Temperature 36.7 C Pulse Rate 92 84 89 Respiratory Rate 18 16 18 Blood Pressure 118/62 114/64 124/60 Pulse Oximetry 98 99 100 09/12/21 22:00 09/13/21 00:00 09/13/21 06:00 Temperature 36.6 C 36.7 C 36.3 C L Pulse Rate 86 89 76 Respiratory Rate 18 18 16 Blood Pressure 95/44 L 122/66 89/47 L Pulse Oximetry 100 99 99 09/13/21 14:00 Temperature 36.6 C Pulse Rate 75 Respiratory Rate 16 Blood Pressure 91/52 L Pulse Oximetry 100 Intake/Output Intake/Output: Intake & Output 09/10/21 09/11/21 09/12/21 09/13/21 23:59 23:59 23:59 23:59 Intake Total 2049 2449 Balance 2049 2449 Meds/Results Medications: Active Medications Generic Name Dose Route Start Last Admin Trade Name Freq PRN Reason Stop Dose Admin Fluticasone Propionate 2 spray 09/13/21 09:00 09/13/21 08:13 Fluticasone Propionate 0.05% Na Spr 16 Gm Btl (*Bkc) NASAL 2 spray QAM SAM Administration Guaifenesin/Dextromethorphan 1 tab 09/12/21 21:00 09/13/21 08:14 Guaifenesin 600 Mg/Dextromethorphan 30 Mg Sr Tab 12 Hr PO 1 tab Q12HR SAM Administration Hydromorphone HCl 0.5 mg 09/12/21 13:29 09/13/21 12:25 Hydromorphone Hcl Inj (*Crx) 1 Mg/Ml Syr IV PUSH 0.5 mg Q4H PRN Administration Pain Rated 7-10 Sodium Chloride 1,000 mls @ 125 mls/hr 09/12/21 13:30 09/13/21 15:17 Normal Saline Iv IV CONT 125 mls/hr .Q8H SAM Administration Ceftriaxone Sodium/Dextrose 1 gm in 50 mls @ 100 mls/hr 09/13/21 10:00 09/13/21 09:35 Rocephin 1 Gm/D5w 50 Ml IVPB Infused Q24H SAM Infusion Ondansetron HCl 4 mg 09/12/21 15:30 Ondansetron Inj 4 Mg/2 Ml Vial IV PUSH Q4H PRN nausea Radiology Results: ITS Impressions Abdomen/Pelvis CT 09/12/21 08:34 IMPRESSION: 1. No etiology for the patient's symptoms. Head CT 09/12/21 12:35 IMPRESSION: 1. Normal brain. Quality VTE Prophylaxis VTE prophylaxis: pharmacologic ordered
[2021-09-13] MEDS: ONDANSETRON INJ 4 MG/2 ML VIAL IV PUSH (18:12)
--- NOTE | 2021-09-13 18:50 | PC.NURSE ---
report given to pacu. pt off floor at this time. all belongings taken.
[2021-09-14] MEDS: ONDANSETRON INJ 4 MG/2 ML VIAL IV PUSH ×2 (00:42→08:09)
[2021-09-14] MEDS: HYDROmorphone HCL INJ (*CRX) 1 MG/ML SYR 0.5 MG IV PUSH ×3 (00:45→09:23)
[2021-09-14] MEDS: SODIUM CHLORIDE 0.9% IV 1,000 ML 75 ML IV CONT (02:55)
[2021-09-14 05:30] VITALS: BP 93/53; PULSE 66; RESP 20; TEMP 37.1; O2SAT 98
[2021-09-14 08:00] VITALS: BP 106/63; PULSE 58; PULSE 66; RESP 14; RESP 20; TEMP 37.2; O2SAT 100; O2SAT 98
[2021-09-14] MEDS: guaiFENesin 600 MG/DEXTROMETHORPHAN 30 MG SR TAB 12 HR 1 TAB PO (08:54)
[2021-09-14] MEDS: FLUTICASONE PROPIONATE 0.05% NA SPR 16 GM BTL (*BKC) 2 SPRAY NASAL (08:54)
--- NOTE | 2021-09-14 10:54 | P.DS_ITS ---
DS: Admitting Diagnosis Discharge Date 09/14/2021 Admitting Diagnosis Headache and urinary symptoms DS: Discharge Diagnosis Discharge Diagnosis (1) Urinary tract infection: Qualifiers: Hematuria presence: with hematuria Urinary tract infection type: site unspecified Qualified Code(s): N39.0 - Urinary tract infection, site not specified; R31.9 - Hematuria, unspecified Code(s): N39.0 - Urinary tract infection, site not specified Status: Acute Assessment and Plan: Patient was started on Rocephin. Blood and urine cultures are pending. Continu e with IV fluids. UC grew ECOLi sensitive to augmentin (2) Headache: Code(s): R51.9 - Headache, unspecified Status: Acute Assessment and Plan: Continue with nausea and pain medication in hospital. DS: Summary Hospital Course Hospital Course: 21-year-old female patient who came to the emergency room with complaints of right flank pain and she also had a headache nausea vomiting fever chills burning with urination that started last night. Patient stated that she has had a history of kidney stones with extraction in the past. Pt here with UTI, UC shows EColi sensitive to augmentin. Time Spent with Patient Time attestation: Total time spent providing and/or coordinating discharge services:40 minutes on day of discharge Exam Const: General: cooperative and healthy appearing; No in distress Nutritional Appearance: thin Orientation/consciousness: oriented to person HENMT: Head: normal to inspection Resp: Effort & Inspection: no respiratory distress Auscultation: no rhonchi and no wheezes Cardio: Rate: regular rate Rhythm: regular rhythm GI: Inspection: normal to inspection Auscultation: normal bowel sounds Neuro: General: oriented to person DS: Data Data Completed and Pending Labs on day of discharge: Preliminary micro results at discharge 09/12/21 17:37 Blood Culture - Preliminary Blood 09/12/21 17:41 Blood Culture - Preliminary Blood Discharge Plan Discharge Attending physician on discharge: Radha Alonzo Consulting providers: Bro Shafer Discharging Clinician: Radha Alonzo Anticipated Discharge Date/Time: 09/14/21 10:52 Patient Disposition: Home, Self-Care Activity: as tolerated Diet: regular Patient Instructions: Antibiotic Form Stand Alone Forms: General Discharge Information Follow-up/Referrals: Bro Shafer MD [Physician] - (with rpt UA in 2-3 weeks time ) Discharge Medications: New phenazopyridine [Pyridium] 200 mg tablet 200 mg PO TID PRN (Reason: pain) Qty: 6 RF: 0 fluticasone propionate 50 mcg/actuation Mertzon,Suspension 2 spray intranasal QAM Qty: 16 RF: 0 amoxicillin-pot clavulanate [Augmentin] 500-125 mg tablet 1 tablet PO Q12H Qty: 20 RF: 0 Date of admission: 09/12/21 13:29 Primary Care Provider: PHYSICIAN,CLINICAL RESEARCH SCIENTIST Admitting Provider: Ct Reynoso Attending physician on admission: Ct Reynoso Condition: Improved
== END 2021-09-14 12:17 | disposition home or self-care (01) ==
LOC: ANHED 13:40 → ANH3MEDSUR 09-13 15:33 → ANHSUROVER 09-14 10:54 → ANH3MEDSUR 09-15 14:38 → ANHSUROVER 09-15 14:38
PROVIDERS: Admitting Provider Internal Medicine; Emergency Provider Emergency Medicine; Visit Provider Family Medicine
DX: N39.0 Urinary tract infection, site not specified (principal); R31.9 Hematuria, unspecified; B96.20 Unspecified Escherichia coli [E. coli] as the cause of diseases classified elsewhere; R51.9 Headache, unspecified; Z87.442 Personal history of urinary calculi
CPT/HCPCS: 36415; 70450; 74177; 80053; 81001; 81025; 83690; 85025; 85055; 87040; 87077; 87086; 87088; 87186; 96361; 96365; 96366; 96367; 96375; 96376; 99285; A9270; G0378; G0379; J0131; J0696; J1170; J1885; J2270; J2405; J7030; Q9967

== ENCOUNTER 2021-12-21 20:31 | Emergency (ER) | payer OTHER, SELFPAY ==
--- NOTE | ~2021-12-21 | XR_ITS ---
XR ribs RT 2V DATE: 12/21/2021 21:25 INDICATION: Fall while cheerleading. Right rib pain. TECHNIQUE: 3 views COMPARISON: None FINDINGS: No right rib fracture is detected. No right pulmonary infiltrate, pneumothorax or pleural e ffusion. Mild thoracic scoliosis. IMPRESSION: No right rib fracture is detected Reviewed, dictated and finalized at location A.
--- NOTE | ~2021-12-21 | CT_ITS ---
EXAMINATION: CT brain wo con DATE: 12/22/2021 00:52 INDICATION: Head injury post fall TECHNIQUE: Computed tomography (CT) of the head was performed without intravenous contrast. Sagittal and coronal reconstructions were performed. The mA was adjusted according to patient size. Iterative reconstruction technique was employed. The dose-length product was 605.33 mGy-cm. COMPARISON: head CT dated 09/12/2021 FINDINGS: No fracture. No acute intracranial hemorrhage, acute infarction or abnormal extra axial fluid collect ion. Ventricles are normal and symmetric. No mass/mass effect. The orbits, paranasal sinuses and mast oid air cells are normal. IMPRESSION: 1. Normal head CT. No fracture or acute intracranial process. Reviewed, dictated and finalized at location A.
[2021-12-21 20:44] VITALS: BP 136/87; PULSE 83; RESP 16; TEMP 36.8; O2SAT 100
[2021-12-21 23:28] VITALS: BP 108/69; PULSE 78; RESP 18; O2SAT 100
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
[2021-12-22] MEDS: KETOROLAC (*BKC) 60 MG/2 ML VIAL IM (00:28)
[2021-12-22] MEDS: HYDROcodone/acetaminophen (*CRX) 5-325 MG TABLET 1 TAB PO (01:52)
[2021-12-22] MEDS: ONDANSETRON HCL ODT 4 MG TABLET PO (02:02)
[2021-12-22 02:18] VITALS: BP 110/72; PULSE 72; RESP 14; O2SAT 100
--- NOTE | 2021-12-22 02:26 | PC.NURSE ---
patient left prior to reassessing pain. Pain upon discharge was still a 8.
== END 2021-12-22 02:20 | disposition home or self-care (01) ==
PROVIDERS: Emergency Provider Emergency Medicine
DX: S20.211A Contusion of right front wall of thorax, initial encounter (principal); Z87.442 Personal history of urinary calculi; Z87.440 Personal history of urinary (tract) infections; W17.89XA Other fall from one level to another, initial encounter; Y93.45 Activity, cheerleading
CPT/HCPCS: 70450; 71100; 96372; 99284; A9270; J1885

== ENCOUNTER 2022-02-21 10:01 | Emergency (ER) | payer OTHER, SELFPAY ==
--- NOTE | 2022-02-21 10:11 | ED.FEMALEGU ---
HPI - Female Genitourinary General Chief complaint: Urogenital-Female Stated complaint: uti symptoms Time Seen by Provider: 02/21/22 10:11 Source: patient Mode of arrival: ambulatory History of Present Illness HPI Narrative: Patient is a 21-year-old female who presents the urgent care with complaints of a possible UTI. Patient states that for the last 2 days she has had lower abdominal spasms and urinary frequency. Patient does have a history of kidney stones and did to have them removed. Patient also has a history of pyelonephritis with hospitalization due to E. coli. Patient has not had a UTI for the last several months. Denies of any blood in the urine, nausea, vomiting or low back pain. Patient has been taking Advil. No other acute complaints. No acute distress noted. Patient aware of the plan of care. Some parts of this dictation were generated by voice recognition software and may contain typographical and/or grammatical inaccuracies. Related Data Allergies Allergy/AdvReac Type Severity Reaction Status Date / Time azithromycin Allergy Severe Anaphylactic Verified 02/21/22 10:15 Shock ciprofloxacin Allergy Unknown Anaphylactic Verified 02/21/22 10:15 Shock clarithromycin Allergy Unknown Anaphylactic Verified 02/21/22 10:15 Shock Review of Systems Review of Systems: CONSTITUTIONAL: Denies fever, chills, or sweats. EYES: Denies visual changes, redness, or discharge. ENT: Denies rhinorrhea, congestion, sore throat, or otalgia. CARDIOVASCULAR: Denies chest pain, palpitations, or edema. RESPIRATORY: Denies cough or dyspnea. GASTROINTESTINAL: Reports of suprapubic pain without nausea, vomiting or diarrhea GENITOURINARY: Reports of dysuria, spasms, urinary frequency SKIN: Denies rash or itching. MUSCULOSKELETAL: Denies back pain, joint pain, or myalgia. NEUROLOGIC: Denies headache, numbness, or weakness. All other systems reviewed are negative, except as documented in HPI. [facility] Past Medical History Medical History Iliotibial band syndrome affecting right lower leg Nephrolithiasis UTI (urinary tract infection) Surgical History Surgical History H/O dilation and curettage History of extraction of renal calculus Family History Family History Mother COPD (chronic obstructive pulmonary disease) Other Arthritis Asthma Breast cancer Depression Diabetes mellitus Neuropathy Throat cancer Social History Social History Social History: The patient is not and does not have any children. She works at [employer]. 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 Lifelong nonsmoker. She occasionally drinks a glass a wine. No marijuana or illicit drugs. 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 Code status full code Smoking status: Never smoker Second hand tobacco smoke exposure: No Alcohol intake: current Drinks per week: 1 Alcohol use details: Social Substance use: never Substance use type: marijuana Gender identity (if verbalized by the patient): Female Spiritual care concerns: No Comments At the time of my signature, I reviewed and agree with the nursing past medical, surgical, social, and family history. There is no relevant family history pertinent to the patient complaint. Exam Narrative: GENERAL: This is a well-nourished, well-developed patient, in no apparent distress. HEAD: normocephalic, atraumatic. EYES: PERRL. Sclera clear/white. Vision is grossly intact. EARS: External ears normal NOSE: External nose normal with no obvious nasal discharge, nares without redness, no rhinorrhea. THROAT: Mucous membranes moist NECK: Neck supple CARDIOVASCULAR: Regular rate and rhythm without murmurs, gallops, or rubs. RESPIRATORY: Clear to
[2022-02-21 10:17] VITALS: BP 107/61; PULSE 60; RESP 16; TEMP 35.9
== END 2022-02-21 10:51 | disposition home or self-care (01) ==
PROVIDERS: Emergency Provider Nurse Practitioner Family
DX: N39.0 Urinary tract infection, site not specified (principal); F12.90 Cannabis use, unspecified, uncomplicated
CPT/HCPCS: 81003; 87086; 87088; 99213; G0463

== ENCOUNTER 2022-04-29 06:43 | Day surgery (SDC) | payer OTHER, SELFPAY ==
[2022-04-12 11:30] VITALS: BMI 21.9
[2022-04-29] VITALS (8 sets, daily range): BP systolic 107–133; BP diastolic 69–80; PULSE 55–101; RESP 12–24; TEMP 36.3–36.9; O2SAT 95–100; BMI 22.4
[2022-04-29] MEDS: LACTATED RINGERS 1,000 ML 30 ML IV CONT ×2 (06:35→08:13)
--- NOTE | 2022-04-29 06:51 | P.OP_ITS ---
Procedure Note - Detailed Date of Procedure 04/29/22 Pre-op Diagnosis Micromastia Post-op Diagnosis Same Procedure Performed Bilateral Augmentation Mammaplasty Surgeon Too Chen MD Anesthesia General Findings Bilateral Dual plane 1 augmentation Yovani SoftTouch Silicone implants Right REF# [id number] SN [id number] Left REF# [id number] SN [id number] Description of Procedure She is here today for bilateral breast augmentation. Previously and again today the risks, benefits, alternatives were discussed in extensive detail. I wanted her to be very realistic about the risks involved as well as expectations. We discussed aftercare and what to monitor for. Made sure answered all of her questions to her satisfaction today and consent was obtained. Marked in the preoperative holding area with their verification. The patient was taken to the operating room placed supine on the operating table. Anesthesia was provided by anesthesiology. A surgical time-out was taken. We cleansed the skin and 1% lidocaine and 0.25% Marcaine with epinephrine was used anesthetize as a field block. She was prepped and draped in a standard sterile fashion. Tegaderm nipple Mariee were placed. A 15 blade used to make an incision along the inframammary fold. Dissection was continued at 45 degree angle until the chest wall as identified. I incised the pectoralis major along its inferior border and completely released the inferior border leaving the medial border intact. I created a subpectoral pocket in the appropriate dimensions based on our preoperative planning for the implant. I then copiously irrigated with saline solution and verified a strict hemosta sis. Next the use a triple antibiotic and Betadine containing solution to irrigate the pocket. I washed my gloves with the triple antibiotic and Betadine solution. We washed the implant immediately upon opening it with this solution and only opened it when we needed it. I used implant funnel and no-touch technique. The implant was introduced into the pocket using the funnel. Having verified p ositioning of the implant this was closed using 2-0 Vicryl followed by 3-0 Monocryl in a running subcuticular 4-0 Monocryl followed by tissue glue. Fluffs and surgical bra were placed. Patient was awoke and taken to PACU without difficulty. All instrument sponge counts were correct at the end of the case. Estimated Blood Loss 20 Drains No Packing No Pathology None sent Complications No immediate complications Condition Stable Disposition PACU
--- NOTE | 2022-04-29 06:51 | WPDHPUPDATE1 ---
History and Physical Update Update Date/Time: 04/29/22 06:51 History and Physical has been reviewed, including an updated exam of the patient. There are NO changes in the patient's condition. Risks, benefits, and alternatives have been discussed and questions answered. Patient agrees to proceed with procedure.
--- NOTE | 2022-04-29 06:56 | WPDANESEPPF ---
Anes - Initial Pre Proc Eval Procedure: Operation Date: 04/29/22 07:30 Proposed Procedures p Bilateral Breast Augmentation Mammoplasty - Too Chen MD Date/Time: 04/29/22 06:56 Surgeon: Too Chen MD Pre Op Diagnosis: Micromastia Patient Data Age: 21 Gender: F Height: 1.6 m Weight: 56 kg Allergies Allergy/AdvReac Type Severity Reaction Status Date / Time azithromycin Allergy Severe Anaphylactic Verified 04/14/22 09:17 Shock ciprofloxacin Allergy Unknown Anaphylactic Verified 04/14/22 09:17 Shock clarithromycin Allergy Unknown Anaphylactic Verified 04/14/22 09:17 Shock Home Medications Medication Instructions Recorded Confirmed Type docusate sodium 100 mg capsule 100 mg PO DAILY #14 caps 04/14/22 Rx (Colace) ondansetron 4 mg disintegrating 4 mg PO Q8H #21 tabs 04/14/22 Rx tablet carisoprodol 350 mg tablet (Soma) 350 mg PO TID PRN muscle pain #21 04/15/22 04/15/22 Rx tabs oxycodone-acetaminophen 5 mg-325 1 tablet PO Q6H PRN pain #30 tabs 04/15/22 04/15/22 Rx mg tablet (Percocet) Patient hx anesthesia problems: none Family hx anesthesia problems: none Results Review: All pre-operative results and documents have been reviewed as part of the pre-operative evaluation. [facility] Past Medical History Medical History Iliotibial band syndrome affecting right lower leg Nephrolithiasis UTI (urinary tract infection) Surgical History Surgical History (Updated 04/29/22 @ 06:57 by Austin Rodríguez MD) H/O dilation and curettage H/O myringotomy History of extraction of renal calculus Hx of tonsillectomy Family History Family History Mother COPD (chronic obstructive pulmonary disease) Other Arthritis Asthma Breast cancer Depression Diabetes mellitus Neuropathy Throat cancer Social History Social History Social History: The patient is not and does not have any children. She works at [employer]. 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 Lifelong nonsmoker. She occasionally drinks a glass a wine. No marijuana or illicit drugs. 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 Code status full code Smoking status: Never smoker Second hand tobacco smoke exposure: No Alcohol intake: current Drinks per week: 1 Alcohol use details: Social Substance use: never Substance use type: marijuana Gender identity (if verbalized by the patient): Female Spiritual care concerns: No Anes - Eval Final PreProcedure Day of Procedure 04/29/22 06:56 Patient weight: normal Heart: regular rate and rhythm Lungs: clear to auscultation Airway: Mallampati scale class 1 Neurological: alert and oriented Last oral intake: >/= 8 hours ASA classification: I Emergent: no Anesthetic plan: proceed Anesthesia type and monitoring: general LMA and standard monitoring Results Review: All pre-operative results and documents have been reviewed as part of the pre-operative evaluation. Informed Consent: The patient's anesthetic plan and its attendant risks and benefits were discussed with the patient/family/POA. Questions were solicited and answers provided to the satisfaction of the patient/family/POA.
[2022-04-29] MEDS: SCOPOLAMINE 1.5 MG PATCH TRANSDERM (07:04)
[2022-04-29] MEDS: ceFAZolin SODIUM 2 GM/20 ML SW SYRINGE IV PUSH (07:18)
[2022-04-29] MEDS: TRANEXAMIC ACID 1,000 MG/10 ML AMPUL 1000 MG IV PUSH (07:30)
[2022-04-29] MEDS: NACL 0.9% IRRIG POUR BOTTLE 900 ML, GENTAMICIN SULFATE INJ 160 MG, ceFAZolin 2 GM, POVI... IRRIGATION (07:36)
[2022-04-29] MEDS: LIDO 1%/EPINEPHRINE 1:100,000 20 ML VIAL 30 ML INFILTRATE (07:38)
[2022-04-29] MEDS: BUPIVACAINE HCL 0.25% 50 ML VIAL 30 ML INFILTRATE (07:41)
[2022-04-29] MEDS: fentaNYL CITRATE INJ (*CRX) 100 MCG/2 ML VIAL 25 MCG IV PUSH ×4 (08:25→08:40)
[2022-04-29] MEDS: HYDROmorphone HCL INJ (*CRX) 1 MG/ML SYR 0.5 MG IV PUSH ×2 (08:48→08:53)
[2022-04-29] MEDS: oxyCODONE HCL (*CRX) 5 MG TAB IR PO (09:26)
--- NOTE | 2022-04-29 09:27 | SUR.PHASEII ---
0925; PT AWAKE, EATING CRACKERS AND DRINKING WATER. STATES PAIN/PRESSURE/BURNING SENSATION TO BILAT BREASTS AT 6/10. OCCASIONAL GRIMACING NOTED. PT REQUESTING PAIN MEDS. OXYCODONE 5MG PO GIVEN. FAMILY REMAIN AT BEDSIDE
--- NOTE | 2022-04-29 09:33 | WPDANESPN ---
Anes - Prog Note Post-Op Date/Time: 04/29/22 09:33 Cardiovascular status: normal Respiratory status: normal Airway patency: baseline Mental status: baseline Post-Op hydration status: normal Vital Signs: Last Vital Signs Temp 36.3 C L 04/29/22 08:13 Pulse 66 04/29/22 09:30 Resp 16 04/29/22 09:30 BP 111/76 04/29/22 09:30 Pulse Ox 100 04/29/22 09:30 O2 Del Method Room Air 04/29/22 09:30 O2 Flow Rate 5 04/29/22 08:28 Pain Score (VAS): 3/10 I/O: Intake & Output 04/28/22 04/29/22 04/29/22 23:59 07:59 15:59 Intake Total 0 Balance 0 Patient Feedback: Patient satisfied with anesthetic care.
--- NOTE | 2022-04-29 09:50 | SUR.PHASEII ---
PT AWAKE AND ALERT. STATES PAIN MUCH IMPROVED NOW TO 4-5/10. MEETS DISCHARGE CRITERIA
== END 2022-04-29 09:56 | disposition home or self-care (01) ==
PROVIDERS: Visit Provider Surgery Plastic and Reconstructive Surgery
PROC: (CPT 19325; principal; 2022-04-29 07:30)
DX: N64.82 Hypoplasia of breast (principal)
CPT/HCPCS: 19325

== ENCOUNTER 2023-01-23 13:38 | Emergency (ER) | payer OTHER, SELFPAY ==
--- NOTE | 2023-01-23 13:42 | ED.FEMALEGU ---
HPI - Female Genitourinary General Chief complaint: Urogenital-Female Stated complaint: std test/women work up Source: patient and RN notes reviewed Mode of arrival: ambulatory Limitations: no limitations History of Present Illness HPI Narrative: 22-year-old female presented for concern for STD exposure. She states a recent sexual partner told her he had been exposed to chlamydia. Also told her he tested negative. She endorses for the last 2 days she has had mild burning with urination and white milky vaginal discharge. LMP 12/28/22. Took negative urine test yesterday. Took a diflucan tablet yesterday. Denies abdominal pain, flank pain, dyspareunia, n/v/d/f/c. Related Data Allergies Allergy/AdvReac Type Severity Reaction Status Date / Time azithromycin Allergy Severe Anaphylactic Verified 07/18/22 14:26 Shock ciprofloxacin Allergy Severe Anaphylactic Verified 07/18/22 14:26 Shock clarithromycin Allergy Severe Anaphylactic Verified 07/18/22 14:26 Shock Review of Systems Review of Systems: CONSTITUTIONAL: Denies body aches, fever, chills, or sweats. CARDIOVASCULAR: Denies chest pain, palpitations, or edema. RESPIRATORY: Denies cough or dyspnea. GASTROINTESTINAL: Denies abdominal pain, nausea, vomiting, or diarrhea. GENITOURINARY: Denies dysuria, frequency, urgency, hematuria, flank pain SKIN: Denies rash, itching, or wounds. MUSCULOSKELETAL: Denies back pain or myalgia. [facility] Past Medical History Medical History Breast implant status 04/25/2022 Iliotibial band syndrome affecting right lower leg Nephrolithiasis UTI (urinary tract infection) Vaginal irritation Surgical History Surgical History H/O dilation and curettage H/O myringotomy History of extraction of renal calculus Hx of tonsillectomy Family History Family History Mother COPD (chronic obstructive pulmonary disease) Other Arthritis Asthma Breast cancer Depression Diabetes mellitus Neuropathy Throat cancer Social History Social History Social History: The patient is not and does not have any children. She works at [employer]. 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 Lifelong nonsmoker. She occasionally drinks a glass a wine. No marijuana or illicit drugs. 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 Please see nursing chart for further information. There is no relevant family history pertinent to the presenting complaint Exam Narrative: GENERAL: Well-appearing and in no acute distress. ENT: Mucous membranes pink and moist. NECK: Normal AROM. Supple. CHEST: No respiratory distress. Clear to auscultation. HEART: Regular rate and rhythm. ABDOMEN: Soft, nontender, nondistended, normal active bowel sounds. No CVA tenderness SKIN: Warm, dry, no rash. NEURO: No focal deficits. Alert and oriented x3. Gait steady. PSYCH: Normal affect. Course Course Emergency Course: Patient is aware of diagnosis, understands and agrees to treatment plan. Anticipatory guidance given. Patient agrees to fol
[2023-01-23 13:48] VITALS: BP 99/74; PULSE 59; RESP 16; TEMP 36.6; O2SAT 100
== END 2023-01-23 14:05 | disposition home or self-care (01) ==
PROVIDERS: Emergency Provider Nurse Practitioner Family
DX: Z20.2 Contact with and (suspected) exposure to infections with a predominantly sexual mode of transmission (principal)
CPT/HCPCS: 81003; 81025; 87086; 87088; 87491; 87591; 87661; 99214; G0463

== ENCOUNTER 2023-09-05 17:37 | Emergency (ER) | payer OTHER, SELFPAY ==
[2023-09-05 17:43] VITALS: BP 97/66; PULSE 68; RESP 16; TEMP 36.9; O2SAT 100
--- NOTE | 2023-09-05 17:56 | ED.SKABFB ---
HPI - Skin/Abscess/Foreign Bdy General Chief complaint: Skin/Abscess/Foreign Body Stated complaint: RASH Time Seen by Provider: 09/05/23 17:45 Source: patient Mode of arrival: ambulatory Limitations: no limitations History of Present Illness HPI narrative: Indira is a 23-year-old female patient presenting to the clinic today with complaints of a rash to the left side of her move that is been there approximately 2 weeks. She also reports that she is having a rash in her pelvis area. Was seen by a walkin clinic- [facility] and they gave her ketoconazole cream to use on the rash. They thought that it looked like ringworm at that time. She is concerned that the rash is not improving it is spreading. Related Data Allergies Allergy/AdvReac Type Severity Reaction Status Date / Time azithromycin Allergy Severe Anaphylactic Verified 09/05/23 18:02 Shock ciprofloxacin Allergy Severe Anaphylactic Verified 09/05/23 18:02 Shock clarithromycin Allergy Severe Anaphylactic Verified 09/05/23 18:02 Shock Review of Systems Review of Systems: Pertinent positives per HPI. Patient denies any fever, chills, headache, visual changes, dizziness, cough, runny nose, sore throat, shortness of breath, chest pain, palpitations, nausea, vomiting, diarrhea, constipation, abdominal pain, or any urinary issues. [facility] Past Medical History Medical History Breast implant status 04/25/2022 Iliotibial band syndrome affecting right lower leg Nephrolithiasis UTI (urinary tract infection) Vaginal irritation Surgical History Surgical History H/O dilation and curettage H/O myringotomy History of extraction of renal calculus Hx of tonsillectomy Family History Family History Mother COPD (chronic obstructive pulmonary disease) Other Arthritis Asthma Breast cancer Depression Diabetes mellitus Neuropathy Throat cancer Social History Social History Social History: The patient is not and does not have any children. She works at [employer] and [employer]. 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 Lifelong nonsmoker. She occasionally drinks a glass a wine. No marijuana or illicit drugs. 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 There is no relevant family history pertinent to the patient complaint. Exam Narrative: General: Well-developed, well nourished, in no apparent distress Head: Normocephalic, atraumatic. Cardio: Regular rate and rhythm, s1 and s2 normal, no murmur appreciated. Resp: Clear to auscultation bilaterally, no rhonchi, rales, wheezing or rubs. Integumentary: [place], warm, and dry, intact without lesion, red non raised rash to the left lateral breast with mild central clearing-red raised pustular looking rash in the pelvic area likely folliculitis Course Course Emergency Course: Portions of this record may have been created with voice recognition software. Level of Care: Express Care Visit Vital Signs Vital signs: Vital Signs Temperature 36.9 C 09/05/23 17:43 Pulse Rate 68 09/05/23 17:43 Respiratory Rate
== END 2023-09-05 18:05 | disposition home or self-care (01) ==
PROVIDERS: Emergency Provider Nurse Practitioner Family
DX: R21 Rash and other nonspecific skin eruption (principal)
CPT/HCPCS: 99213; G0463